=== PATIENT | male | born 1950 | race Caucasian/White ===

== ENCOUNTER 2019-06-20 14:01 | Emergency (ER) | payer OTHER, MEDICARE ==
[~2019-06-20] VITALS: Ht 185.4 cm; Wt 115.9 kg
[2019-06-20 14:09] VITALS: Ht 185.4 cm; Wt 115.9 kg
[2019-06-20] MEDS ORDERED: HYDROCHLOROTHIA25 MG PO (14:10)
[2019-06-20 14:56] LABS: APPEARANCE CLEAR (CLEAR); BILIRUBIN NEGATIVE (NEGATIVE); COLOR YELLOW (YELLOW); GLUCOSE NEGATIVE (NEGATIVE); KETONE NEGATIVE (NEGATIVE); NITRITE NEGATIVE (NEGATIVE); PROTEIN NEGATIVE (NEGATIVE); SPECIFIC GRAVITY 1.015 (1.005-1.020); UROBILINOGEN NORMAL (NORMAL)
[2019-06-20 14:57] LABS: BASOPHILS 0.6 % (0-2); EOSINOPHILS 4.7 % (0-7); HEMATOCRIT 42.5 % (42.0-54.0); HEMOGLOBIN 14.8 g/dL (13.5-17.5); IMMATURE GRANULOCYTES 0.2 % (0-5); LYMPHOCYTES 12.4 % (15-50); MCH 30.3 pg (26.0-34.0); MCHC 34.8 g/dL (31.0-37.0); MCV 87.1 fL (80.0-100.0); MONOCYTES 16.5 % (2-11); NEUTROPHILS 65.6 % (40-80); PLATELET COUNT 150 10x3/uL (130-400); RBC 4.88 10x6/uL (4.20-6.10); RDW 13.9 % (11.5-14.5); WBC 4.9 10x3/uL (4.8-10.8)
[2019-06-20 15:16] LABS: ALBUMIN 3.3 g/dL (3.4-5.0); ALKALINE PHOSPHATASE 69 U/L (46-116); ALT (SGPT) 39 U/L (10-68); BILIRUBIN - TOTAL 0.74 mg/dL (0.2-1.3); CALC OSMOLALITY 280 mosm/kg (275-300); CALCIUM 8.9 mg/dL (8.5-10.1); CHLORIDE - SERUM 102 mmol/L (98-107); CREATININE - SERUM 1.1 mg/dL (0.6-1.3); GLUCOSE 112 mg/dL (74-106); SODIUM 140 mmol/L (136-145); UREA NITROGEN 16 mg/dL (7-18); eGFR NON AFRICAN AMERICAN 71 mL/min (90-120)
[2019-06-20 15:19] LABS: TROPONIN-I < 0.017 ng/mL (0.000-0.060)
[2019-06-20 19:30] VITALS: BP 145/65
== END 2019-06-20 19:30 | disposition home or self-care (01) ==
LOC: D.ER 14:01
PROVIDERS: Family Medicine
DX: G47.8 Other sleep disorders (principal); K74.60 Unspecified cirrhosis of liver; E87.6 Hypokalemia; B19.20 Unspecified viral hepatitis C without hepatic coma

== ENCOUNTER 2020-12-23 05:19 | Inpatient (IN) | payer OTHER, MEDICARE ==
[~2020-12-23] VITALS: Ht 185.4 cm; Wt 90.9 kg
[~2020-12-23 05:19] MED LIST: HYDROCHLOROTHIA25 MG PO
[2020-12-23 05:44] LABS: BASOPHILS 0.2 % (0-2); EOSINOPHILS 0 % (0-7); HEMATOCRIT 39.5 % (42.0-54.0); HEMOGLOBIN 13.3 g/dL (13.5-17.5); IMMATURE GRANULOCYTES 0.5 % (0-5); LYMPHOCYTE ABS# 0.18 10x3/uL (1.32-3.57); LYMPHOCYTES 2.7 % (15-50); MCH 30.9 pg (26.0-34.0); MCHC 33.7 g/dL (31.0-37.0); MCV 91.6 fL (80.0-100.0); MEAN PLATELET VOLUME 9.5 fL (7.4-10.4); NEUTROPHIL ABS# 5.43 10x3/uL (1.78-5.38); NEUTROPHILS 82.6 % (40-80); PLATELET COUNT 124 10x3/uL (130-400); RBC 4.31 10x6/uL (4.20-6.10); RDW 19.4 % (11.5-14.5); WBC 6.6 10x3/uL (4.8-10.8)
[2020-12-23 05:51] LABS: APTT 34.8 SECONDS (22.8-39.4); INR 1.34 (0.85-1.17); PROTIME 15.4 SECONDS (11.6-15.0)
[2020-12-23 06:16] LABS: ANION GAP 11.5 mmol/L (8-16); CARBON DIOXIDE 30.7 mmol/L (21.0-32.0); CREATININE - SERUM 1.7 mg/dL (0.6-1.3); POTASSIUM - SERUM 3.2 mmol/L (3.5-5.1)
[2020-12-23 06:32] LABS: ALBUMIN 2.7 g/dL (3.4-5.0); BILIRUBIN - TOTAL 10.84 mg/dL (0.2-1.3); MAGNESIUM - SERUM 1.5 mg/dL (1.8-2.4); PROTEIN - SERUM 7.2 g/dL (6.4-8.2)
[2020-12-23 06:35] LABS: TROPONIN-I 1.783 ng/mL (0.000-0.060)
[2020-12-23 06:39] VITALS: BP 153/77
[2020-12-23 07:11] LABS: UDS - AMPHET NEGATIVE QUAL (NEGATIVE); UDS - BARB NEGATIVE QUAL (NEGATIVE); UDS - BENZO NEGATIVE QUAL (NEGATIVE); UDS - COCAINE NEGATIVE QUAL (NEGATIVE); UDS - OPIATE NEGATIVE QUAL (NEGATIVE); UDS - PCP NEGATIVE QUAL (NEGATIVE); UDS - THC NEGATIVE QUAL (NEGATIVE)
[2020-12-23 07:32] LABS: BILIRUBIN 3+ (NEGATIVE); KETONE NEGATIVE (NEGATIVE); NITRITE NEGATIVE (NEGATIVE); UROBILINOGEN 12 mg/dL (< 2)
[2020-12-23 07:43] LABS: WHITE CELLS - URINE RARE HPF (0-1)
[2020-12-23 07:44] LABS: AMORPHOUS SEDIMENT <1+ LPF (NONE SEEN); BACTERIA FEW HPF (NONE SEEN); SQUAMOUS EPITHELIAL OCC HPF (0-4)
[2020-12-23 10:00] VITALS: BP 130/91
--- NOTE | 2020-12-23 10:00 | NUR ---
ARRIVE TO ROOM VIA WHEELCHAIR FROM ER. ALERT AND ORIENTED X4. TRANSFER TO BED WITH MINIMAL ASSIST. MED REC DONE TO BEST OF PATIENT'S KNOWLEDGE PER PATIENT. CONTINUE ADMISSION PROCESS AND SAFETY PRECAUTIONS. REFUSE SCDs. EDUCATE ON RISK FOR DVT.
[2020-12-23] MEDS ORDERED: AMRIX30 MG PO (10:29)
[2020-12-23] MEDS ORDERED: SUDAFED 30 MG T30 MG PO (10:30)
[2020-12-23] MEDS ORDERED: OMEPRAZOLE40 MG PO (10:30)
[2020-12-23] MEDS ORDERED: VENTOLIN HFA [SP8 GM INH (10:31)
[2020-12-23] MEDS ORDERED: SYMBICORT 80-10.2 GM INH (10:32)
[2020-12-23 11:00] VITALS: BP 126/65
[2020-12-23 15:14] VITALS: BP 130/91
[2020-12-23 19:52] VITALS: BP 125/69
--- NOTE | 2020-12-23 19:54 | NUR ---
REPORT RECEIVED, WILL CONT POC. PT UP IN BED RECEIVING BREATHING TREATMENT FROM RT. NO S/S OF DISTRESS OBSERVED. RR EVEN AND UNLABORED ON RA. BED LOCKED AND LOWERED, CL IN REACH. ASSESSMENT COMPLETED AT THIS TIME. WILL CONT TO MONITOR.
[2020-12-23 20:00] VITALS: BP 125/69
--- NOTE | 2020-12-23 23:10 | NUR ---
REPORT RECEIVED, WILL CONT POC. PT A&O, UP IN BED WATCHING TV. NO S/S OF DISTRESS OBSERVED. RR EVEN AND UNLABORED ON RA. BED LOCKED AND LOWERED, CL IN REACH. ASSESSMENT COMPLETED AT THIS TIME. WILL CONT TO MONITOR.
[2020-12-24 00:06] VITALS: BP 104/62
[2020-12-24 04:02] VITALS: BP 117/68
[2020-12-24 06:10] LABS: BASOPHILS 0.2 % (0-2); EOSINOPHILS 1.7 % (0-7); HEMATOCRIT 36.6 % (42.0-54.0); HEMOGLOBIN 12.1 g/dL (13.5-17.5); IMMATURE GRANULOCYTES 0.6 % (0-5); LYMPHOCYTE ABS# 0.35 10x3/uL (1.32-3.57); LYMPHOCYTES 7.3 % (15-50); MCH 30.6 pg (26.0-34.0); MCHC 33.1 g/dL (31.0-37.0); MCV 92.7 fL (80.0-100.0); MEAN PLATELET VOLUME 9.4 fL (7.4-10.4); NEUTROPHIL ABS# 3.77 10x3/uL (1.78-5.38); NEUTROPHILS 78.2 % (40-80); PLATELET COUNT 103 10x3/uL (130-400); RBC 3.95 10x6/uL (4.20-6.10); RDW 20.3 % (11.5-14.5)
[2020-12-24 06:15] LABS: WBC 4.8 10x3/uL (4.8-10.8)
[2020-12-24 06:32] LABS: INR 1.45 (0.85-1.17); PROTIME 16.4 SECONDS (11.6-15.0)
[2020-12-24 06:37] LABS: ALBUMIN 2.4 g/dL (3.4-5.0); ANION GAP 12.1 mmol/L (8-16); BILIRUBIN - TOTAL 10.14 mg/dL (0.2-1.3); CALCIUM 8.6 mg/dL (8.5-10.1); CARBON DIOXIDE 28.1 mmol/L (21.0-32.0); CREATININE - SERUM 1.4 mg/dL (0.6-1.3); MAGNESIUM - SERUM 1.7 mg/dL (1.8-2.4); PHOSPHOROUS 2.3 mg/dL (2.5-4.9); POTASSIUM - SERUM 3.2 mmol/L (3.5-5.1); PROTEIN - SERUM 6.3 g/dL (6.4-8.2)
--- NOTE | 2020-12-24 07:20 | NUR ---
RECIEVE REPORT. ALERT AND ORIENTED X4. ASSIST UP TO RESTROOM WITH WALKER. GAIT UNSTEADY. SINUS TACH ON TELEMETRY. DENIES ANY OTHER NEEDS. CONTINUE PLAN OF CARE AND SAFETY PRECAUTIONS.
[2020-12-24 08:00] VITALS: BP 126/72
[2020-12-24 11:00] VITALS: BP 130/74
[2020-12-24 11:10] LABS: HEPATITIS C ANTIBODY >11.0 S/CO RAT (0.0-0.9)
[2020-12-24 11:49] VITALS: Ht 185.4 cm; Wt 90.9 kg
--- NOTE | 2020-12-24 13:58 | EC ---
PATIENT:IVONNE VILLAGOMEZ DATE OF SERVICE: 12/23/20 SEX: M MEDICAL RECORD: [id number] DATE OF : 54 LOCATION:D.M2 D.210 AGE OF PATIENT: 70 ADMISSION DATE: 12/23/20 REFERRING PHYSICIAN: INTERPRETING PHYSICIAN: SIMONE ORDAZ MD ECHOCARDIOGRAM REPORT ECHO CHARGES 4 ECHO COMPLETE Date: 12/23/20 CLINICAL DIAGNOSIS: ELEVATED TROP, CHF ECHOCARDIOGRAPHIC MEASUREMENTS (adult normal given) AC root (d.<3.7cm) 3.6 cm LV Septum d (<1.2 cm> 1.2 cm Valve Excursion 1.6 cm LV Septum (systole) 1.6 cm Left Atria (s.<4.0cm> 4.0 cm LVPW d(<1.2cm) 1.3 cm RV (d.<2.3cm) 3.7 cm LVPW (sytole) 1.4 cm LV diastole(<5.6CM) 5.5 cm MV E-F(>70mm/sec) cm LV systole 4.2 cm LVOT Diameter 2.0 cm MV exc.(>10mm) 1.2 cm Est.ejection fraction (50-75%) % DOPPLER: LVIT cm/sec A 89 cm/sec E 75 cm/sec LA cm/sec RVSP 24 mmHg LVOT 162 cm/sec AOP1/2T m/s Asc. Ao 217 cm/sec RVOT 95 cm/sec RA cm/sec PA 115 cm/sec AV Gradient Peak 18.9 mmHg AV Mean 11.0 mmHg AV Area 2.4 cm MV Gradient Peak 5.6 mmHg MV Mean 3.0 mmHg MV Area cm COMMENTS: Panel Edge Sealer: Moreno TODD Electric Range Preparer: 3 Dr. Goff TAPE# Pericardial Effusion N DATE OF SERVICE: Adequate 2D, color-flow imaging, spectral Doppler, and M-Mode. FINDINGS: Borderline to mild LVH. LV internal dimension is normal. Wall motion is normal. EF is greater than or equal to 55%. Aortic valve is tricuspid. No evidence of stenosis by Doppler interrogation. Left atrium is normal at 4.0 cm. Mitral valve shows no prolapse. Trace MR. Right size is grossly normal. Trace TR. ECHOCARDIOGRAM REPORT [id number] IVONNE VILLAGOMEZ TRANSINT:[id number] Voice Confirmation ID: [id number] DOCUMENT ID: [id number] SIMONE ORDAZ MD at 1358 CC: [id number] DICTATION DATE: 12/23/20 112 CATTLE AND WHEAT FARMER: 12/23/20 211 ADM IN [facility] [address] [id number]
--- NOTE | 2020-12-24 17:03 | NUR ---
ASSIST UP TO RESTROOM. WHEN ATTEMPT TO AMBULATE BACK TO BED WITH WALKER, FEET UNABLE TO MOVE PROPERLY. CALL PHYSICAL THERAPY TO ASSIST BACK TO BED. PT INSTRUCT TO USE BEDPAN FOR PATIENT AND STAFF SAFETY.
[2020-12-24 19:00] VITALS: BP 118/602
--- NOTE | 2020-12-24 21:38 | NUR ---
REPORT RECEIVED, WILL CONT POC. PT A&O, UP IN BED RESTING. NO S/S OF DISTRESS OBSERVED. RR LABORED ON 3L NC, WILL CONSULT WITH RT, O2 SAT 92. BED LOCKED AND LOWERED, CL IN REACH. ASSESSMENT COMPLETED AT THIS TIME. WILL CONT TO MONITOR.
[2020-12-24 22:37] VITALS: BP 118/60
[2020-12-25] VITALS: BP 123/71
[2020-12-25 04:00] VITALS: BP 140/89
[2020-12-25 06:23] LABS: EOSINOPHILS 2.5 % (0-7); HEMATOCRIT 38.5 % (42.0-54.0); HEMOGLOBIN 12.9 g/dL (13.5-17.5); IMMATURE GRANULOCYTES 0.8 % (0-5); LYMPHOCYTES 5.7 % (15-50); MCH 31.6 pg (26.0-34.0); MCHC 33.5 g/dL (31.0-37.0); MCV 94.4 fL (80.0-100.0); MEAN PLATELET VOLUME 9.6 fL (7.4-10.4); MONOCYTES 14.7 % (2-11); NEUTROPHIL ABS# 3.95 10x3/uL (1.78-5.38); NEUTROPHILS 75.3 % (40-80); PLATELET COUNT 101 10x3/uL (130-400); RBC 4.08 10x6/uL (4.20-6.10); RDW 21.2 % (11.5-14.5); WBC 5.2 10x3/uL (4.8-10.8)
--- NOTE | 2020-12-25 07:13 | NUR ---
RECEIVE BEDSIDE SHIFT REPORT. RESTING IN BED WITH EYES CLOSED. NO S/S OF DISTRESS PRESENT AT THIS TIME. CALL LIGHT IN REACH. BED ALARM ON. WILL CONTINUE POC AND SAFETY PRECAUTIONS.
[2020-12-25 07:19] LABS: ALBUMIN 2.5 g/dL (3.4-5.0); ANION GAP 10.9 mmol/L (8-16); BILIRUBIN - TOTAL 12.35 mg/dL (0.2-1.3); CALCIUM 8.4 mg/dL (8.5-10.1); CARBON DIOXIDE 30.6 mmol/L (21.0-32.0); CREATININE - SERUM 1.4 mg/dL (0.6-1.3); MAGNESIUM - SERUM 1.7 mg/dL (1.8-2.4); PHOSPHOROUS 2.8 mg/dL (2.5-4.9); POTASSIUM - SERUM 3.5 mmol/L (3.5-5.1)
[2020-12-25 08:27] VITALS: BP 140/80
[2020-12-25 10:54] LABS: INR 1.36 (0.85-1.17); PROTIME 15.5 SECONDS (11.6-15.0)
[2020-12-25 12:06] VITALS: BP 130/80
--- NOTE | 2020-12-25 14:53 | NUR ---
EMPTIED 250ML OF DARK URINE
[2020-12-25 17:08] VITALS: BP 111/65
[2020-12-25 20:00] VITALS: BP 107/74
[2020-12-26] VITALS (7 sets, daily range): BP systolic 98–184; BP diastolic 60–74
--- NOTE | 2020-12-26 04:15 | NUR ---
PT PULLED HIS IV OUT EARLIER IN THE NIGHT. AN IV WAS STARTED IN THE RIGHT HAND WIHT A 22 GUAGE NEEDLE IN THE LEFT FOREARM AN IV WAS STARTED WITH A 20 GUAGE NEEDLE. BOTH ARE SALINE LOCKED. PT HAS BEEN CLEANED UP MULTIPLE TIMES TONIGHT. HIS SPEECH IS GARBLED. AT THIS POINT I CAN BARELY UNDERSTAND HIM.
[2020-12-26 06:20] LABS: BASOPHILS 0.9 % (0-2); EOSINOPHILS 2.7 % (0-7); HEMATOCRIT 39.5 % (42.0-54.0); HEMOGLOBIN 12.8 g/dL (13.5-17.5); IMMATURE GRANULOCYTES 1.1 % (0-5); LYMPHOCYTE ABS# 0.33 10x3/uL (1.32-3.57); LYMPHOCYTES 7.3 % (15-50); MCH 31.6 pg (26.0-34.0); MCHC 32.4 g/dL (31.0-37.0); MONOCYTES 17.7 % (2-11); NEUTROPHIL ABS# 3.17 10x3/uL (1.78-5.38); NEUTROPHILS 70.3 % (40-80); RBC 4.05 10x6/uL (4.20-6.10); RDW 21.7 % (11.5-14.5); WBC 4.5 10x3/uL (4.8-10.8)
[2020-12-26 06:34] LABS: MCV 97.5 fL (80.0-100.0); PLATELET COUNT 123 10x3/uL (130-400)
[2020-12-26 06:35] LABS: ALBUMIN 2.5 g/dL (3.4-5.0); BILIRUBIN - TOTAL 14.69 mg/dL (0.2-1.3); CALCIUM 8.7 mg/dL (8.5-10.1); CARBON DIOXIDE 32.2 mmol/L (21.0-32.0); CREATININE - SERUM 1.6 mg/dL (0.6-1.3); MAGNESIUM - SERUM 1.6 mg/dL (1.8-2.4); POTASSIUM - SERUM 3.2 mmol/L (3.5-5.1); PROTEIN - SERUM 6.7 g/dL (6.4-8.2)
[2020-12-26 07:00] LABS: INR 1.33 (0.85-1.17); PROTIME 15.3 SECONDS (11.6-15.0)
--- NOTE | 2020-12-26 07:13 | NUR ---
RECEIVE SHIFT REPORT. RESTING IN BED WITH EYES CLOSED. NO S/S OF DISTRESS PRESENT AT THIS TIME. NO LABORED BREATHING. O2 AT 5LNC. WILL CONTINUE POC AND SAFETY PRECAUTIONS. BED ALARM ON.
--- NOTE | 2020-12-26 12:46 | NUR ---
Nutrition Follow-up: Discussed with nursing. Reports pt is lethargic and has some shaking when trying to eat; eating <=50% of meals. Diet: Cardiac Wt: 273# (12/25) Labs noted: K+ 3.2, BUN 35, Cre 1.6, GFR 46, Mg 1.6, Alb 2.5, elev LFTs Meds noted: Lasix, Protonix, Lactulose, electrolyte protocol -Encourage PO intake and honor food preferences within diet restrictions. -Offer nutrition supplements. -RD follow-up: 12/30
[2020-12-26 14:10] LABS: HCVGENO - HEP C QUANT HCV Not Detected IU/mL (())
--- NOTE | 2020-12-26 22:37 | NUR ---
REPORT RECEIVED, WILL CONT POC. PT UP IN BED, A&O. PTS RESPIRATIONS ARE SHALLOW AND LABORED ON 8L. PT C/O SOB. PT PLACED IN UP RIGHT POSITION TO EASE BREATHING EFFORT. BED LOCKED AND LOWERED, CL IN REACH. ASSESSMENT COMPLETED AT THIS TIME. WILL CONT TO MONITOR.
[2020-12-27 00:21] VITALS: BP 106/64
--- NOTE | 2020-12-27 00:36 | NUR ---
PTS BREATHING EFFORT HAS EASED. PT RESTING PEACEFULLY IN BED ON 8 L NC.
[2020-12-27 04:00] LABS: BASOPHILS 1.1 % (0-2); EOSINOPHILS 2.8 % (0-7); HEMATOCRIT 40.1 % (42.0-54.0); IMMATURE GRANULOCYTES 1.5 % (0-5); LYMPHOCYTE ABS# 0.28 10x3/uL (1.32-3.57); LYMPHOCYTES 6.1 % (15-50); MCH 31.6 pg (26.0-34.0); MCHC 32.4 g/dL (31.0-37.0); MCV 97.6 fL (80.0-100.0); MEAN PLATELET VOLUME 10.1 fL (7.4-10.4); MONOCYTES 17.8 % (2-11); NEUTROPHIL ABS# 3.26 10x3/uL (1.78-5.38); NEUTROPHILS 70.7 % (40-80); PLATELET COUNT 132 10x3/uL (130-400); RBC 4.11 10x6/uL (4.20-6.10); WBC 4.6 10x3/uL (4.8-10.8)
[2020-12-27 04:05] LABS: INR 1.35 (0.85-1.17); PROTIME 15.4 SECONDS (11.6-15.0)
[2020-12-27 04:12] LABS: ALBUMIN 2.3 g/dL (3.4-5.0); ANION GAP 11.9 mmol/L (8-16); BILIRUBIN - TOTAL 15.53 mg/dL (0.2-1.3); CALCIUM 8.5 mg/dL (8.5-10.1); CARBON DIOXIDE 31.5 mmol/L (21.0-32.0); CREATININE - SERUM 1.7 mg/dL (0.6-1.3); MAGNESIUM - SERUM 1.6 mg/dL (1.8-2.4); PHOSPHOROUS 2.4 mg/dL (2.5-4.9); POTASSIUM - SERUM 3.4 mmol/L (3.5-5.1); PROTEIN - SERUM 6.5 g/dL (6.4-8.2)
[2020-12-27 04:31] VITALS: BP 106/66
--- NOTE | 2020-12-27 07:00 | NUR ---
LYING IN BED, AWAKE/ALERT/CONFUSED, T/R SELF AD LAWANDA WITH ASSIST, FC DRAINING DARK YELLOW URINE TO CDB IN AMPLE AMT, CATH CARE PROVIDED WITH DAILY BATH AND PRN, INCONT OF BOWEL WITH USE OF INCONT PADS, PERICARE PROVIDED WITH DAILY BATH AND PRN, DENIES PAIN/OTHER DISCOMFORT AT THIS TIME, CALL LIGHT/PHONE/WATER WITHIN REACH, NO S/S OF ACUTE DISTRESS OBSERVED.
[2020-12-27 08:00] VITALS: BP 139/110; BP 140/95
--- NOTE | 2020-12-27 19:30 | NUR ---
RECEIVED REPORT, WILL ASSUME CARE OF PT, IV-LFA-R HAND-SL, DENIES ANY NEEDS AT THIS TIME, BED IS LOW, SRX2, CALL LIGHT IN REACH, WILL CONTINUE PLAN OF CARE
[2020-12-27 22:50] VITALS: BP 115/69
[2020-12-28 01:04] VITALS: BP 105/67
--- NOTE | 2020-12-28 03:37 | NUR ---
I have reviewed this patient and I concur with the Shift Assessment completed by the Licensed Practical Nurse today this shift.
[2020-12-28 04:08] LABS: EOSINOPHILS 2.2 % (0-7); IMMATURE GRANULOCYTES 2.8 % (0-5); LYMPHOCYTE ABS# 0.29 10x3/uL (1.32-3.57); LYMPHOCYTES 5.8 % (15-50); MCH 31.9 pg (26.0-34.0); MCHC 32.5 g/dL (31.0-37.0); MEAN PLATELET VOLUME 10.2 fL (7.4-10.4); MONOCYTES 19.1 % (2-11); NEUTROPHIL ABS# 3.43 10x3/uL (1.78-5.38); NEUTROPHILS 69.1 % (40-80); PLATELET COUNT 141 10x3/uL (130-400); RBC 4.08 10x6/uL (4.20-6.10); RDW 22.5 % (11.5-14.5)
[2020-12-28 04:29] LABS: INR 1.36 (0.85-1.17); PROTIME 15.5 SECONDS (11.6-15.0)
[2020-12-28 04:31] LABS: ALBUMIN 2.1 g/dL (3.4-5.0); ANION GAP 10.8 mmol/L (8-16); BILIRUBIN - TOTAL 16.09 mg/dL (0.2-1.3); CALCIUM 8.5 mg/dL (8.5-10.1); CARBON DIOXIDE 30.7 mmol/L (21.0-32.0); CREATININE - SERUM 1.5 mg/dL (0.6-1.3); MAGNESIUM - SERUM 1.7 mg/dL (1.8-2.4); PHOSPHOROUS 2.9 mg/dL (2.5-4.9); POTASSIUM - SERUM 3.5 mmol/L (3.5-5.1); PROTEIN - SERUM 6.2 g/dL (6.4-8.2)
[2020-12-28 05:47] VITALS: BP 110/68
[2020-12-28 08:29] VITALS: BP 98/53
--- NOTE | 2020-12-28 08:48 | NUR ---
PT VERY DROWSY THIS AM, BUT EASILY AROUSES TO VOICE. SPEECH IS GARBLE UNABLE TO UNDERSTAND PT WHEN HE SPEAKS. HELPED COATING INSPECTOR CLEAN PT UP FROM INCONT EPISODE, COMPLETE LINEN CHANGE, ALSO REPOSITIONED PT IN BED. PT IS ON 6LNC WITH EVEN AND UNLABORED RESP. RT HAND IV INFUSING NS AT KVO. LT FA IV SL. SR-87 WITH PAC ON TELE. PLACED SCDS ON BILAT. PT DENIES ANY NEEDS AT THIS TIME. CALL LIGHT IN REACH. WILL CONTINUE PLAN OF CARE.
[2020-12-28 11:42] VITALS: BP 108/66
--- NOTE | 2020-12-28 14:53 | NUR ---
CLEANED PT UP FROM INCONT EPISODE. PT DENIES ANY OTHER NEEDS AT THIS TIME. CALL LIGHT IN REACH.
--- NOTE | 2020-12-28 15:36 | NUR ---
REDNESS NOTED TO RT HAND IV, PT C/O TENDERNESS AND PAIN WHEN IV IS FLUSHED. D/C IV WITH CATHETER TIP INTACT. PT DENIES ANY OTHER NEEDS AT THIS TIME. CALL LIGHT IN REACH.
[2020-12-28 16:17] VITALS: BP 110/64
[2020-12-28 20:30] VITALS: BP 108/71
[2020-12-29 00:30] VITALS: BP 111/75
[2020-12-29 04:30] VITALS: BP 128/72
[2020-12-29 04:40] LABS: BASOPHILS 0.6 % (0-2); EOSINOPHILS 2.5 % (0-7); HEMOGLOBIN 13.5 g/dL (13.5-17.5); IMMATURE GRANULOCYTES 1.5 % (0-5); LYMPHOCYTES 6.3 % (15-50); MCH 31.5 pg (26.0-34.0); MCHC 31.4 g/dL (31.0-37.0); MEAN PLATELET VOLUME 10.3 fL (7.4-10.4); MONOCYTES 16.8 % (2-11); NEUTROPHIL ABS# 3.45 10x3/uL (1.78-5.38); NEUTROPHILS 72.3 % (40-80); PLATELET COUNT 155 10x3/uL (130-400); RBC 4.28 10x6/uL (4.20-6.10); RDW 22.8 % (11.5-14.5); WBC 4.8 10x3/uL (4.8-10.8)
[2020-12-29 04:47] LABS: MCV 100.5 fL (80.0-100.0)
[2020-12-29 05:01] LABS: ALBUMIN 2.2 g/dL (3.4-5.0); ANION GAP 13.5 mmol/L (8-16); BILIRUBIN - TOTAL 17.77 mg/dL (0.2-1.3); CALCIUM 8.6 mg/dL (8.5-10.1); CARBON DIOXIDE 28.2 mmol/L (21.0-32.0); CREATININE - SERUM 1.5 mg/dL (0.6-1.3); POTASSIUM - SERUM 3.7 mmol/L (3.5-5.1); PROTEIN - SERUM 6.5 g/dL (6.4-8.2)
--- NOTE | 2020-12-29 08:30 | NUR ---
AM MEDS GIVEN AT THIS TIME. ALSO HELPED PT EAT BREAKFAST, PT TOOK A FEW BITES AND DRINKED 240CC OF ORANGE JUICE, AND THEN HE STATED THAT HE WAS DONE. PT IS A/O X3, RESP EVEN AND NONLABORED ON 6L NC. LR FA INFUSING NS AT KVO, A LITTLE REDNESS NOTED TO SITE BUT FLUSHES FINE AND PT DOES NOT C/O PAIN WHEN IV IS BEING FLUSHED. SCDS ON BILAT. BED LOW, BEDSIDE RAILS X2, CALL LIGHT IN REACH.
[2020-12-29 08:35] VITALS: BP 101/64
[2020-12-29 12:10] VITALS: BP 114/72
--- NOTE | 2020-12-29 13:02 | NUR ---
NOTIFIED MYKE GARCIA APRN THAT PT IS REFUSING TO HAVE ABGS DONE.
[2020-12-29 16:16] VITALS: BP 126/66
[2020-12-29 22:30] VITALS: BP 116/74
[2020-12-30 04:00] VITALS: BP 111/72
[2020-12-30 05:02] LABS: BASOPHILS 1.1 % (0-2); EOSINOPHILS 3.2 % (0-7); HEMATOCRIT 40.5 % (42.0-54.0); HEMOGLOBIN 12.8 g/dL (13.5-17.5); IMMATURE GRANULOCYTES 1.8 % (0-5); LYMPHOCYTE ABS# 0.41 10x3/uL (1.32-3.57); LYMPHOCYTES 9.4 % (15-50); MCH 31.6 pg (26.0-34.0); MCHC 31.6 g/dL (31.0-37.0); MONOCYTES 20.1 % (2-11); NEUTROPHIL ABS# 2.81 10x3/uL (1.78-5.38); NEUTROPHILS 64.4 % (40-80); PLATELET COUNT 165 10x3/uL (130-400); RBC 4.05 10x6/uL (4.20-6.10); RDW 22.9 % (11.5-14.5); WBC 4.4 10x3/uL (4.8-10.8)
[2020-12-30 05:16] LABS: INR 1.34 (0.85-1.17); PROTIME 15.4 SECONDS (11.6-15.0)
[2020-12-30 05:27] LABS: ANION GAP 9.6 mmol/L (8-16); BILIRUBIN - TOTAL 15.79 mg/dL (0.2-1.3); CALCIUM 8.4 mg/dL (8.5-10.1); CARBON DIOXIDE 30.1 mmol/L (21.0-32.0); CREATININE - SERUM 1.5 mg/dL (0.6-1.3); POTASSIUM - SERUM 3.7 mmol/L (3.5-5.1); PROTEIN - SERUM 6.2 g/dL (6.4-8.2)
--- NOTE | 2020-12-30 08:18 | NUR ---
AM MEDS GIVEN PER EMAR. PT AWAKE AND ALERT, SPEECH IS MUMBLED. PT BEDDING CHANGED, INCONTINENT BOWEL MOVEMENT NOTED. PT DENIES ANY PAIN, O2 IN PLACE. CLWR.
[2020-12-30 08:58] VITALS: BP 150/81
--- NOTE | 2020-12-30 09:00 | NUR ---
PT LAYING IN BED WITH OXYGEN OFF. NASAL CANNULA REPLACED AND EDUCATION DONE WITH PT. PT IS ORIENTED TO PERSON, PLACE, AND TIME, DISORIENTED TO SITUATION. PT BOWEL MOVEMENT CLEANED. PT TURNED IN BED TO LEFT SIDE. PT GIVEN MEDICATIONS WITH APPLESAUCE AND THICKENED LIQUIDS. PT COUGHED AFTER THE THICKENED LIQIUDS. PT APPEARS RESTLESS. WILL CONTINUE TO MONITOR.
--- NOTE | 2020-12-30 12:51 | NUR ---
Nutrition Reassessment/Follow-up: Noted pt with some confusion & garbled speech. Nursing reports pt ate some this AM; 50% recorded on door. Poor PO intake reported over the weekend. ST mando on 12/27 = dysarthria & oropharyngeal dysphagia. Diet: Cardiac, Mech Soft w/ Ground Meat, [place] Thick Liquids PO intake: 0-25% (12/28-12/29) Wt: 200# (12/27)IBW: 184# Labs noted: BUN 46, Cre 1.5, GFR 49, Ca 8.4, Alb 2.0, elev LFTs, Ammonia 33 Meds noted: Lactulose, Florajen, Protonix, Lasix, electrolyte protocol Est needs: 2530-6809 kcal/day (25-30 kcal/kg IBW) 55-75 g protein/day (0.6-0.8 g/kg actual BW) -Encourage PO intake and honor food preferences within diet restrictions. -Offer nutrition supplements. -Need new wt. -RD will follow up within 3-4 days.
[2020-12-30 15:53] VITALS: BP 110/75
[2020-12-30 20:00] VITALS: BP 120/80
--- NOTE | 2020-12-30 22:00 | NUR ---
PT LAYING IN BED WITH OXYGEN OFF. EDUCATION DONE WITH PATIENT ON OXYGEN NEED/USE. PT VERBALIZED UNDERSTANDING. PT IS ORIENTED TO PERSON, PLACE, AND TIME. PT IS DISORIENTED TO SITUATION. PT BOWEL MOVEMENT CLEANED UP. PT VITALS WNL. MEDICATIONS GIVEN WITH APPLESAUCE AND THICKENED LIQUIDS. PT COUGHED AFTER THICKENED LIQUIDS. PT REFUSING A GOWN. IV INTACT.
--- NOTE | 2020-12-30 23:00 | NUR ---
PT CLEANED UP AFTER BOWEL MOVEMENT, INCLUDING SOCKS AND BEDSHEETS BEING REPLACED. PT REFUSES GOWN. OXYGEN REMOVED AGAIN. PT SCOOTING TO END OF BED. PT TURNED TO RIGHT SIDE. PT GIVEN PRN ATIVAN FOR AGITATION AND RESTLESSNESS. WILL CONTINUE TO MONITOR.
[2020-12-31 04:00] VITALS: BP 106/73
[2020-12-31 06:00] LABS: EOSINOPHILS 2.4 % (0-7); LYMPHOCYTE ABS# 0.23 10x3/uL (1.32-3.57); LYMPHOCYTES 5.6 % (15-50); MCHC 31.7 g/dL (31.0-37.0); MEAN PLATELET VOLUME 10.9 fL (7.4-10.4); MONOCYTES 18.8 % (2-11); NEUTROPHIL ABS# 2.88 10x3/uL (1.78-5.38); NEUTROPHILS 70.2 % (40-80); PLATELET COUNT 170 10x3/uL (130-400); RBC 4.06 10x6/uL (4.20-6.10); RDW 22.7 % (11.5-14.5); WBC 4.1 10x3/uL (4.8-10.8)
[2020-12-31 06:29] LABS: ALBUMIN 1.9 g/dL (3.4-5.0); ANION GAP 10.8 mmol/L (8-16); BILIRUBIN - TOTAL 15.15 mg/dL (0.2-1.3); CALCIUM 8.3 mg/dL (8.5-10.1); CREATININE - SERUM 1.7 mg/dL (0.6-1.3); POTASSIUM - SERUM 3.8 mmol/L (3.5-5.1); PROTEIN - SERUM 6.1 g/dL (6.4-8.2)
[2020-12-31 07:28] VITALS: BP 106/75
--- NOTE | 2020-12-31 08:00 | NUR ---
NURSE GIVES PATIENT PO MEDS WITH HIS APPLESAUCE, NURSE TRIES TO GET PATIENT HIS LACTULOSE , BUT HE CHOKES QUITE A BIT ON IT. HIS EYES GOT WATERY AND NURSE HAD TO RAISE HIM UP TO CATCH HIS BREATH. NURSE REPORTS TO CEASAR LADD AND HE LETS NURSE KNOW THAT HE HAD A SWALLOW STUDY YESTERDAY, BUT WOULD LOOK AT THIS CHART.
[2020-12-31 15:00] VITALS: BP 110/70
--- NOTE | 2020-12-31 16:26 | NUR ---
OT NOTE: PT IS MAX-TOTAL A WITH BED MOB TASKS. PT IS LETHARGIC AND REQUIRED EXTENDED TIME. PT REQUIRED MAX A FOR SIMPLE FACE AND HAND HYGIENE TASKS. [phone] THANK YOU,SONAL ANNE
--- NOTE | 2020-12-31 19:30 | NUR ---
PT IN BED, AAO X 1, PT RESP EVEN AND UNLABORED, NO DISTRESS NOTED, CL IN REACH, SR UP X 2.
[2020-12-31 21:00] VITALS: BP 105/55
[2020-12-31 23:56] VITALS: BP 104/65
[2021-01-01 04:00] VITALS: BP 100/56
--- NOTE | 2021-01-01 05:45 | NUR ---
I have reviewed this patient and I concur with the Shift Assessment completed by the Licensed Practical Nurse today this shift.
[2021-01-01 06:27] LABS: BASOPHILS 0.8 % (0-2); EOSINOPHILS 3.2 % (0-7); HEMATOCRIT 41.2 % (42.0-54.0); HEMOGLOBIN 12.9 g/dL (13.5-17.5); IMMATURE GRANULOCYTES 1.4 % (0-5); LYMPHOCYTE ABS# 0.35 10x3/uL (1.32-3.57); LYMPHOCYTES 7.1 % (15-50); MCH 32.1 pg (26.0-34.0); MCHC 31.3 g/dL (31.0-37.0); MCV 102.5 fL (80.0-100.0); MEAN PLATELET VOLUME 10.9 fL (7.4-10.4); MONOCYTES 16.3 % (2-11); NEUTROPHIL ABS# 3.53 10x3/uL (1.78-5.38); NEUTROPHILS 71.2 % (40-80); PLATELET COUNT 170 10x3/uL (130-400); RBC 4.02 10x6/uL (4.20-6.10); RDW 22.8 % (11.5-14.5)
[2021-01-01 07:24] LABS: ALBUMIN 1.8 g/dL (3.4-5.0); ANION GAP 11.6 mmol/L (8-16); BILIRUBIN - TOTAL 14.54 mg/dL (0.2-1.3); CALCIUM 8.5 mg/dL (8.5-10.1); CARBON DIOXIDE 28.3 mmol/L (21.0-32.0); CREATININE - SERUM 1.8 mg/dL (0.6-1.3); POTASSIUM - SERUM 3.9 mmol/L (3.5-5.1); PROTEIN - SERUM 6.1 g/dL (6.4-8.2)
[2021-01-01 08:01] VITALS: BP 103/54
[2021-01-01 11:54] VITALS: BP 116/71
[2021-01-01 15:24] VITALS: BP 120/76
--- NOTE | 2021-01-01 17:45 | NUR ---
OT NOTE: ATTEMPTED TMT X 2.. PT WAS VERY LETHARGIC IN BOTH THE AM AND PM..ABLE TO AROUSE BUT UNABLE TO STAY AWAKE. VERY MUMBLED SPEECH.. DIFFICULTY UNDERSTANDING WHAT PT WAS SAYING. WILL ATTEMPT AGAIN TOMORROW. LUKASZ BURNETT, OTR/L
[2021-01-01 18:57] VITALS: BP 114/74
--- NOTE | 2021-01-01 19:45 | NUR ---
RECIEVED UP IN BED WITH HOB ELEVATED. AROUSES TTO VERBAL STIMULI. O2 HF AT 15 LITERS. NO S/S OF DISTRESS OBSERVED.
[2021-01-01 23:41] VITALS: BP 96/63
[2021-01-02 04:33] VITALS: BP 97/58
[2021-01-02 05:13] LABS: BASOPHILS 1.1 % (0-2); EOSINOPHILS 2.4 % (0-7); HEMATOCRIT 42.1 % (42.0-54.0); HEMOGLOBIN 13.2 g/dL (13.5-17.5); IMMATURE GRANULOCYTES 1.5 % (0-5); LYMPHOCYTE ABS# 0.34 10x3/uL (1.32-3.57); LYMPHOCYTES 6.3 % (15-50); MCH 32.1 pg (26.0-34.0); MCHC 31.4 g/dL (31.0-37.0); MCV 102.4 fL (80.0-100.0); MEAN PLATELET VOLUME 11.5 fL (7.4-10.4); MONOCYTES 15.2 % (2-11); NEUTROPHIL ABS# 3.96 10x3/uL (1.78-5.38); NEUTROPHILS 73.5 % (40-80); PLATELET COUNT 182 10x3/uL (130-400); RBC 4.11 10x6/uL (4.20-6.10); RDW 22.7 % (11.5-14.5); WBC 5.4 10x3/uL (4.8-10.8)
[2021-01-02 05:37] LABS: ALBUMIN 1.8 g/dL (3.4-5.0); ANION GAP 14.2 mmol/L (8-16); BILIRUBIN - TOTAL 14.33 mg/dL (0.2-1.3); CALCIUM 8.7 mg/dL (8.5-10.1); POTASSIUM - SERUM 4.2 mmol/L (3.5-5.1)
[2021-01-02 05:38] LABS: CREATININE - SERUM 2.3 mg/dL (0.6-1.3)
[2021-01-02 08:25] VITALS: BP 101/61
--- NOTE | 2021-01-02 09:03 | NUR ---
PT WITH DECREASED OXYGEN THIS MORNING, RT CALLED AND PLACED ON NRB. POSITIONED FOR COMFORT. CEASAR BEJARANO WITH ROUNDS AND ORDERED STAT ORDERS. DR BROWN ORDERED ABG'S.
--- NOTE | 2021-01-02 10:32 | NUR ---
PT STILL ON NRB, CONT PULSE OX SHOWING 93%. LETHARGIC AND SLEEPING. AROUSE TO VOICE/TOUCH. GARBLED WORDS AT BEST. MEDS AND BREAKFAST HELD DUE TO LETHARGY AND SWALLOW RISK. POSITIONED IN BED.
--- NOTE | 2021-01-02 11:06 | NUR ---
Nutrition Follow-up: Nursing reports meds and breakfast held this AM d/t lethargy and swallow risk. ST following. Noted pt with poor prognosis. Discussed in IDT meeting. Diet: Cardiac, Pureed, [place] Thick Liquids, no straw No new wt; last wt: 200# (12/27) Labs noted: Na 151, BUN 73, Cre 2.3, GFR 30, Alb 1.8, Ammonia 30, elev LFTs Meds noted: Lactulose, Florajen, Protonix, Lasix, electrolyte protocol -If poor PO intake/issues with swallowing persist, pt may benefit from nutrition support (NGT/PEG?) if medically feasible and/or desired. -Need new wt; noted daily wts ordered. -RD follow-up: 01/06
[2021-01-02 12:23] VITALS: BP 97/61
--- NOTE | 2021-01-02 12:48 | NUR ---
OT NOTE: HOLD TMT TODAY DUE TO INCREASED 02 REQUIREMENTS AND CONTINUED LETHARGY... LUKASZ BURNETT, OTR/L
--- NOTE | 2021-01-02 14:11 | NUR ---
PT BLADDER SCAN SHOWS 182ML OF VOLUME. SUAREZ PLACED, DARK DOMINGO URINE DRAINED.
[2021-01-02 14:35] LABS: BILIRUBIN 3+ (NEGATIVE); KETONE NEGATIVE (NEGATIVE); NITRITE NEGATIVE (NEGATIVE); UROBILINOGEN NORMAL mg/dL (< 2)
[2021-01-02 14:36] LABS: AMORPHOUS SEDIMENT MANY LPF (NONE SEEN); BACTERIA MODERATE HPF (NONE SEEN); WHITE CELLS - URINE 2 HPF (0-1)
[2021-01-02 17:04] VITALS: BP 103/75
[2021-01-02 20:28] VITALS: BP 106/67
[2021-01-03 01:11] VITALS: BP 106/60
[2021-01-03 04:59] VITALS: BP 99/62
--- NOTE | 2021-01-03 05:24 | NUR ---
TOOK BIPAP OFF AND PUT ON 7L HF. O2-92-93%. PT ON CONTINOUS O2. PT A/O TO PERSON. WORDS GARBLED. PT LETHARGIC AND SKIN IS ORANGE. PT ASKED IF HE HAS PAIN. PT STATES A LITTLE BIT. ITS HARD TO DECIFER PT'S WORDS. ORAL CARE PROVIDED. WILL CONTINUE TO MONITOR.
[2021-01-03 05:33] LABS: BASOPHILS 1.2 % (0-2); EOSINOPHILS 2.4 % (0-7); HEMATOCRIT 40.1 % (42.0-54.0); HEMOGLOBIN 12.6 g/dL (13.5-17.5); IMMATURE GRANULOCYTES 1.9 % (0-5); LYMPHOCYTE ABS# 0.28 10x3/uL (1.32-3.57); LYMPHOCYTES 4.8 % (15-50); MCH 32.4 pg (26.0-34.0); MCHC 31.4 g/dL (31.0-37.0); MCV 103.1 fL (80.0-100.0); MEAN PLATELET VOLUME 11.4 fL (7.4-10.4); MONOCYTES 13.7 % (2-11); NEUTROPHIL ABS# 4.42 10x3/uL (1.78-5.38); PLATELET COUNT 160 10x3/uL (130-400); RBC 3.89 10x6/uL (4.20-6.10); RDW 23.1 % (11.5-14.5); WBC 5.8 10x3/uL (4.8-10.8)
[2021-01-03 05:34] LABS: INR 1.52 (0.85-1.17)
[2021-01-03 05:37] LABS: ANION GAP 12.3 mmol/L (8-16); BILIRUBIN - TOTAL 14.58 mg/dL (0.2-1.3); CALCIUM 8.8 mg/dL (8.5-10.1); CREATININE - SERUM 2.8 mg/dL (0.6-1.3); MAGNESIUM - SERUM 2.6 mg/dL (1.8-2.4); POTASSIUM - SERUM 4.3 mmol/L (3.5-5.1); PROTEIN - SERUM 6.2 g/dL (6.4-8.2)
[2021-01-03 05:46] LABS: ALBUMIN 2.5 g/dL (3.4-5.0)
--- NOTE | 2021-01-03 06:17 | NUR ---
I have reviewed this patient and I concur with the Shift Assessment completed by the Licensed Practical Nurse today this shift.
--- NOTE | 2021-01-03 08:00 | NUR ---
PT RECEIVED ASLEEP AND LETHARGIC. OFF OF BIPAP PLACED BACK ON NRB. POSITIONED FOR COMFORT. SUAREZ NOTED WITH DARK DOMINGO URINE.
[2021-01-03 08:29] VITALS: BP 103/60
--- NOTE | 2021-01-03 11:20 | NUR ---
PT TURNED AND CLEANED FROM BM. POSITIONED FOR COMFORT. HE IS MORE AWAKE AND ALERT TODAY AND HAD A VISITOR.
[2021-01-03 12:23] VITALS: BP 110/65
--- NOTE | 2021-01-03 13:46 | MORECARE ---
CASE MANAGEMENT DISCHARGE SUMMARY PATIENT: IVONNE RUTLEDGE UNIT: [id number] ADM DATE: 12/23/20 AGE: 70 : 52 SEX: M ROOM/BED: D.2106 AUTHOR: SHAZIA,DOC PHYSICIAN: REFERRING PHYSICIAN: ROSETTE MANN MD DATE OF SERVICE: 01/03/21 Case Management Discharge Planning Summary COMMENTS ENTERED DATE: 01/03/21 5:09 CT COMMENT TYPE: Discharge Planning REVIEWER: Miladys Castellanos Late Entry 01/02/21 CM attempted to call patient's contact Taiwo Jareth to see if he had any family contacts. CM didn't gat an answer CM left message. CM spoke with Ana at [facility] to see if they had any contact information for family, Ana stated that they had a contact listed of a brother Lalito Rutledge [phone] . CM called that number and spoke with a lady at a bank defiantly not a correct number. CM will continue to find family contact or POA . Patient is currently unable give any information. ENTERED DATE: 12/31/20 3:28 CT COMMENT TYPE: Discharge Planning REVIEWER: Miladys Castellanos CM received a call from Ana at [facility] regarding d/c planning / needs. Ana stated that patient is100% [place]. She also gave CM number for [facility] [phone] and fax [phone] for [facility] inpatient rehab referral. CM will continue to follow and assist as needed with discharge planning / needs. DCP REVIEW SUMMARY ANTICIPATED D/C DATE: EXPECTED LOS : CASE STATUS: DCP Initiated INITIAL REVIEW: 01/03/2021 INITIAL REVIEWER: Nathalie Uribe FINAL DISCHARGE DISPOSITION: : FINAL REVIEWER: FINAL REVIEW DATE: DCP Focus Questions & Answers QUESTION: ANSWER : PATIENT: IVONNE RUTLEDGE ENCOUNTER: [id number] MEDICAL RECORD#: [id number] ADMISSION DATE: 12/23/2020 DISCHARGE DATE: ATTENDING MD: MACKENZIE MANN : AGE: 70 MARITAL STATUS: S DC PLAN ID: [id number] FACILITY: [facility] PRINTED ON: 01/03/21 13:46 CT All edits/amendments must be made on the electronic document DICTATION DATE: 01/03/211345 NEUROPHYSIOLOGIST: SHAUNA 01/03/211345 RPT#: [id number] DC DATE: STATUS: ADM IN [facility] [address] [place] [address] END OF REPORT
--- NOTE | 2021-01-03 13:59 | MORECARE ---
CASE MANAGEMENT DISCHARGE SUMMARY PATIENT: IVONNE RUTLEDGE UNIT: [id number] ADM DATE: 12/23/20 AGE: 70 : 52 SEX: M ROOM/BED: D.2106 AUTHOR: SHAZIA,DOC PHYSICIAN: REFERRING PHYSICIAN: ROSETTE MANN MD DATE OF SERVICE: 01/03/21 Case Management Discharge Planning Summary COMMENTS ENTERED DATE: 01/03/21 13:45 CT COMMENT TYPE: Discharge Planning REVIEWER: Nathalie Uribe CM spoke with visitor in the room, Erwin Blank. Erwin states that he is going to call patient's brother in [place] after visit to discuss plan. Patient's brother, Avi, is the next of kin. Erwin states we can call him with any needs. I did discuss the hospice option and Erwin states "I don't think we are ready at this time." Avi Rutledge - [phone] [place] [address] Erwin Blank - friend - [phone] ENTERED DATE: 01/03/21 5:09 CT COMMENT TYPE: Discharge Planning REVIEWER: Miladys Castellanos Late Entry 01/02/21 CM attempted to call patient's contact Taiwo Jareth to see if he had any family contacts. CM didn't gat an answer CM left message. CM spoke with Ana at [facility] to see if they had any contact information for family, Ana stated that they had a contact listed of a brother Lalito Rutledge [phone] . CM called that number and spoke with a lady at a bank defiantly not a correct number. CM will continue to find family contact or POA . Patient is currently unable give any information. ENTERED DATE: 12/31/20 3:28 CT COMMENT TYPE: Discharge Planning REVIEWER: Miladys Castellanos CM received a call from Ana at [facility] regarding d/c planning / needs. Ana stated that patient is100% [place] benefits. She also gave CM number for Suzy Brizuela [phone] and fax [phone] inpatient rehab referral. CM will continue to follow and assist as needed with discharge planning / needs. DCP REVIEW SUMMARY ANTICIPATED D/C DATE: EXPECTED LOS : CASE STATUS: DCP Initiated INITIAL REVIEW: 01/03/2021 INITIAL REVIEWER: Nathalie Uribe FINAL DISCHARGE DISPOSITION: : FINAL REVIEWER: FINAL REVIEW DATE: DCP Focus Questions & Answers QUESTION: ANSWER : PATIENT: IVONNE RUTLEDGE ENCOUNTER: [id number] MEDICAL RECORD#: [id number] ADMISSION DATE: 12/23/2020 DISCHARGE DATE: ATTENDING MD: MACKENZIE MANN : AGE: 70 MARITAL STATUS: S DC PLAN ID: [id number] FACILITY: [facility] PRINTED ON: 01/03/21 13:58 CT All edits/amendments must be made on the electronic document DICTATION DATE: 01/03/21 135 COATING MACHINE FEEDER: SHAUNA 01/03/21 1358 RPT#: [id number] DC DATE: STATUS: ADM IN [facility] [address] [place] [address] END OF REPORT
[2021-01-03 16:45] VITALS: BP 129/70
[2021-01-03 21:14] VITALS: BP 107/71
[2021-01-04 01:47] VITALS: BP 105/65
--- NOTE | 2021-01-04 02:52 | NUR ---
I have reviewed this patient and I concur with the Shift Assessment completed by the Licensed Practical Nurse today this shift.
[2021-01-04 05:50] VITALS: BP 107/65
[2021-01-04 06:14] LABS: BASOPHILS 1.8 % (0-2); EOSINOPHILS 3.6 % (0-7); HEMOGLOBIN 11.8 g/dL (13.5-17.5); IMMATURE GRANULOCYTES 1.6 % (0-5); LYMPHOCYTE ABS# 0.34 10x3/uL (1.32-3.57); LYMPHOCYTES 6.8 % (15-50); MCH 32.2 pg (26.0-34.0); MCHC 31.1 g/dL (31.0-37.0); MCV 103.5 fL (80.0-100.0); MEAN PLATELET VOLUME 11.5 fL (7.4-10.4); MONOCYTES 11.8 % (2-11); NEUTROPHIL ABS# 3.71 10x3/uL (1.78-5.38); NEUTROPHILS 74.4 % (40-80); PLATELET COUNT 153 10x3/uL (130-400); RBC 3.67 10x6/uL (4.20-6.10); RDW 22.7 % (11.5-14.5)
[2021-01-04 06:29] LABS: ALBUMIN 2.9 g/dL (3.4-5.0); ANION GAP 14.4 mmol/L (8-16); BILIRUBIN - TOTAL 13.78 mg/dL (0.2-1.3); CALCIUM 8.8 mg/dL (8.5-10.1); CARBON DIOXIDE 26.8 mmol/L (21.0-32.0); CREATININE - SERUM 2.5 mg/dL (0.6-1.3); MAGNESIUM - SERUM 2.8 mg/dL (1.8-2.4); POTASSIUM - SERUM 4.2 mmol/L (3.5-5.1); PROTEIN - SERUM 6.3 g/dL (6.4-8.2)
--- NOTE | 2021-01-04 06:35 | NUR ---
I have reviewed this patient and I concur with the Shift Assessment completed by the Licensed Practical Nurse today this shift.
[2021-01-04 08:00] VITALS: BP 108/70
--- NOTE | 2021-01-04 09:00 | NUR ---
INTERMITTANT CONFUSION NOTED WITH PATIENT ROMOVING NRB AT TIMES WITH PATINET DESATTING TO 83% BUT REBOUNDS TO 955 WHEN REAPPLIED. CONTIIOUS PULSE OX MONITORED AND REPACED WHEN REMOVED PER PATINET. SKIN JAUNDICED WITH SUAREZ CATH PATENT. IVF INFUSING AT PRESCRIBED RATE WITH PATIENT BEING MONITORED.
[2021-01-04 11:00] VITALS: BP 113/76
[2021-01-04 15:00] VITALS: BP 106/73
--- NOTE | 2021-01-04 19:39 | NUR ---
INITIAL ROUNDS COMPLETED. PT RESTING WITH EYES CLOSED. RESP EVEN AND REGULAR. SR UP X2, CALL LIGHT WITHIN REACH.
[2021-01-04 20:30] VITALS: BP 100/64
--- NOTE | 2021-01-04 21:50 | NUR ---
ASSESSMENT COMPLETED AT 2020 HRS. VSS. O2 10LHF O2. PT VERY LETHARGIC, OPENS EYES TO LOUD VERBAL STIMULI, ANSWERED YES WHEN ASKED IF HE WAS COLD AND PROMPTLY WENT BACK TO SLEEP. LUNGS DIMINISHED IN BASES BILAT. ABD DISTENDED WITH BS NOTED. SWENSON. PALPABLE PERIPHERAL PULSES. SUAREZ DRAINING DARK URINE. IV TO LAC WITH D5W AT 75CC/HR. IV PATENT. SCD'S REMOVED AND SKIN INSPECTED. NO BREAKDOWN NOTED. UNABLE TO GIVE PM MEDS DUE TO PT'S LETHARGY. PT PLACED ON BIPAP AT THIS TIME WITH O2 SAT 95%. SR UP X2, CALL LIGHT WITHIN REACH AND BABY MONITOR IN USE.
--- NOTE | 2021-01-04 23:54 | NUR ---
PT PICKING AT THE BLANKETS. NO DISTRESS NOTED. O2 SAT 90% ON BIPAP. SR UP X2, CALL LIGHT WITHIN REACH AND BABY MONITOR ON.
[2021-01-05 00:30] VITALS: BP 104/70
--- NOTE | 2021-01-05 02:09 | NUR ---
PT RESTING WITH EYES CLOSED. RESP EVEN AND REGULAR. SRUP X3, CALL LIGT WITHIN REACH. O2 SAT 92% ON BIPAP.
[2021-01-05 04:30] VITALS: BP 108/70
--- NOTE | 2021-01-05 04:36 | NUR ---
PT MORE ALERT THIS AM. ABLE TO ANSWER YES/NO QUESTIONS APPROPRIATELY. I'S AND O'S COMPLETED. SR UP X3, CALL LIGHT WITHIN REACH.
[2021-01-05 04:43] LABS: BASOPHILS 1.5 % (0-2); EOSINOPHILS 3.3 % (0-7); HEMATOCRIT 41.2 % (42.0-54.0); HEMOGLOBIN 12.8 g/dL (13.5-17.5); IMMATURE GRANULOCYTES 1.5 % (0-5); LYMPHOCYTE ABS# 0.33 10x3/uL (1.32-3.57); LYMPHOCYTES 6.1 % (15-50); MCHC 31.1 g/dL (31.0-37.0); MEAN PLATELET VOLUME 11.2 fL (7.4-10.4); MONOCYTES 13.3 % (2-11); NEUTROPHIL ABS# 4.03 10x3/uL (1.78-5.38); NEUTROPHILS 74.3 % (40-80); PLATELET COUNT 139 10x3/uL (130-400); RDW 22.7 % (11.5-14.5); WBC 5.4 10x3/uL (4.8-10.8)
[2021-01-05 05:04] LABS: ALBUMIN 2.6 g/dL (3.4-5.0); ANION GAP 13.2 mmol/L (8-16); BILIRUBIN - TOTAL 13.46 mg/dL (0.2-1.3); CARBON DIOXIDE 25.8 mmol/L (21.0-32.0); CREATININE - SERUM 2.6 mg/dL (0.6-1.3)
--- NOTE | 2021-01-05 06:30 | NUR ---
PT RESTED WELL DURING SHIFT. ORAL CARE DONE X2. PT TOLERATED WELL. NEEDS MET; WILL CONTINUE TO MONITOR.
[2021-01-05 08:42] VITALS: BP 99/61
--- NOTE | 2021-01-05 10:25 | NUR ---
PT AWAKE AND CONFUSED, LYING IN BED WATCHING T/V. PT VERBALIZES BEING UPSET THAT HE CAN NOT FIND HIS DOG. INFORMED PT THAT HE WAS IN THE HOSPITAL AND HIS DOG WAS NOT HERE. PT STILL NPO PER MD. BUT IS COMPLAINING THAT HE IS HUNGRY AND THIRSTY. PT IS CLEAN AND DRY AT THIS TIME. REARANGED IN BED. CL IN REACH,S RX2. BED ALARM ON AND ACTIVE.
[2021-01-05 11:43] VITALS: BP 102/60
--- NOTE | 2021-01-05 15:32 | NUR ---
I have reviewed this patient and I concur with the Shift Assessment completed by the Licensed Practical Nurse today this shift.
[2021-01-05 16:33] VITALS: BP 98/54
--- NOTE | 2021-01-05 18:14 | NUR ---
PT ALERT AND CONFUSED. CLEAN AND DRY AT THIS TIME. RESTING COMFORTABLY. CL IN REACH, SRX2.
[2021-01-05 22:06] VITALS: BP 89/53
[2021-01-06 07:36] LABS: BASOPHILS 2.1 % (0-2); EOSINOPHILS 3.7 % (0-7); HEMATOCRIT 39.1 % (42.0-54.0); IMMATURE GRANULOCYTES 2.3 % (0-5); LYMPHOCYTE ABS# 0.27 10x3/uL (1.32-3.57); LYMPHOCYTES 5.6 % (15-50); MCH 32.3 pg (26.0-34.0); MCHC 30.7 g/dL (31.0-37.0); MEAN PLATELET VOLUME 11.5 fL (7.4-10.4); MONOCYTES 13.7 % (2-11); NEUTROPHILS 72.6 % (40-80); PLATELET COUNT 128 10x3/uL (130-400); RBC 3.71 10x6/uL (4.20-6.10); RDW 22.6 % (11.5-14.5); WBC 4.8 10x3/uL (4.8-10.8)
[2021-01-06 07:51] LABS: ALBUMIN 2.9 g/dL (3.4-5.0); ANION GAP 15.4 mmol/L (8-16); BILIRUBIN - TOTAL 13.37 mg/dL (0.2-1.3); CALCIUM 8.9 mg/dL (8.5-10.1); CARBON DIOXIDE 25.9 mmol/L (21.0-32.0); CREATININE - SERUM 2.4 mg/dL (0.6-1.3); POTASSIUM - SERUM 4.3 mmol/L (3.5-5.1); PROTEIN - SERUM 6.1 g/dL (6.4-8.2)
[2021-01-06 07:56] LABS: MCV 105.4 fL (80.0-100.0)
--- NOTE | 2021-01-06 08:10 | NUR ---
NURSE CALLS TO REPORT LOW CHLORIDE TO MYKE AT THIS TIME
[2021-01-06 08:44] VITALS: BP 102/57
--- NOTE | 2021-01-06 09:57 | NUR ---
NURSE TALKS WITH COMMUNITY ENGAGEMENT LEADER ABOUT PATIENT GETTING A NG TUBE AND NEPRO NUTRITION. SHE REPORTS TAHT PATIENT HAS A VARICIES AND THAT IT WAS AN ISSUE LAST WEEK , WHEN HE WAS ORIGINALLY PLACED . NURSE REPORTS TO YAIR. YAIR TELLS NURSE TO TALK WITH PRIMARY TO SEE THE PLAN SINCE PATIENT IS NOT GETTING NUTRITION.
--- NOTE | 2021-01-06 10:47 | NUR ---
PATIENT'S FRIEND (DECISION MAKER) WILL BE HERE AROUND NOON TODAY TO SEE PATIENT AND TALK WITH DRS ABOUT PATIENT.
--- NOTE | 2021-01-06 10:48 | NUR ---
DR MAZARIEGOS WAS ABLE TO TALK WITH PATIENT'S FRIEND TO GIVE UPDATE
[2021-01-06 13:36] VITALS: BP 106/38
--- NOTE | 2021-01-06 14:22 | NUR ---
Nutrition Reassessment/Follow-up: NPO x 4 days. Noted renal wants NGT placed and Nepro started. Although, noted pt with varices. ST following. No new wt; last wt: 200# (12/27) Labs noted: Na 154, K+ 4.3, BUN 100, Cre 2.4, GFR 29, Glu 130, Mg 3.0, Alb 2.9, PO4 2.9 (12/28) Meds noted: Albumin, Lactulose, Florajen, Protonix, D5W @ 125, electrolyte protocol -Nutrition needs unchanged; no new wt available. -If feeding tube is able to be placed, rec Suplena @ goal rate of 50 mL/hr; provides 2154 kcal (86-103% est needs) & 54 g protein (72-98% est needs) daily. -Need new wt. - follow-up: 01/08
--- NOTE | 2021-01-06 16:39 | NUR ---
PATIENT'S FRIEND IN ROOM , NURSE CALLS CHRISTIAN COUNSELOR TO TALK WITH HER.
--- NOTE | 2021-01-06 17:27 | NUR ---
NURSE FEEDS PATIENT PUREEDED DIET, AND THICKENED LIQUID. PATIENT TOLERATES VERY WELL. PATIENT'S FRIEND IN ROOM STILL WITH PATIENT. NURSE TAKES NPO OFF DOOR.
[2021-01-06 19:32] VITALS: BP 97/63
--- NOTE | 2021-01-06 21:42 | NUR ---
PT IS VERBALLY REFUSING HIS PO MEDS. I ASKED HIM IF HER WOULD TAKE THIS PO MED IN PUDDING. HE SAID NO..
[2021-01-07] VITALS (7 sets, daily range): BP systolic 97–111; BP diastolic 48–60
--- NOTE | 2021-01-07 04:41 | NUR ---
PT HAS BEEN RESTING ALL NIGHT. NO NEW C/O TO REPORT
[2021-01-07 06:19] LABS: BASOPHILS 1.2 % (0-2); EOSINOPHILS 1.5 % (0-7); HEMATOCRIT 40.8 % (42.0-54.0); HEMOGLOBIN 12.8 g/dL (13.5-17.5); LYMPHOCYTE ABS# 0.24 10x3/uL (1.32-3.57); LYMPHOCYTES 3.6 % (15-50); MCH 32.4 pg (26.0-34.0); MCHC 31.4 g/dL (31.0-37.0); MONOCYTES 11.3 % (2-11); NEUTROPHIL ABS# 5.36 10x3/uL (1.78-5.38); NEUTROPHILS 79.4 % (40-80); PLATELET COUNT 138 10x3/uL (130-400); RBC 3.95 10x6/uL (4.20-6.10); RDW 22.3 % (11.5-14.5)
[2021-01-07 06:26] LABS: INR 1.58 (0.85-1.17); PROTIME 17.5 SECONDS (11.6-15.0)
[2021-01-07 06:27] LABS: MCV 103.3 fL (80.0-100.0); WBC 6.7 10x3/uL (4.8-10.8)
[2021-01-07 06:28] LABS: ANION GAP 13.7 mmol/L (8-16); BILIRUBIN - TOTAL 13.98 mg/dL (0.2-1.3); CARBON DIOXIDE 25.6 mmol/L (21.0-32.0); CREATININE - SERUM 2.8 mg/dL (0.6-1.3); POTASSIUM - SERUM 4.3 mmol/L (3.5-5.1); PROTEIN - SERUM 6.3 g/dL (6.4-8.2)
--- NOTE | 2021-01-07 08:15 | NUR ---
NURSE IN ROOM TO FEED PT BREAKFAST AND GIVE AM MEDS. PATIENT IS AWAKE IN SPURTS. PATIENT NOT ABLE TO EAT MUCH DUE TO HIM BEING SO LETHARGIC, BUT NURSE TRIES WAKING HIM UP TO FEED HIM
--- NOTE | 2021-01-07 12:00 | NUR ---
PATIENT IS NOT AWAKE ENOUGH TO FEED PATIENT LUNCH.
--- NOTE | 2021-01-07 13:00 | NUR ---
RESPIRATORY PLACES PATIENT BACK ON BIPAP MACHINE DUE TO HIM NOT KEEPING SATS UP AND BEING LETHARGIC.
--- NOTE | 2021-01-07 22:22 | NUR ---
Pt resting in bed and on the BiPap @ 40%. The Pt will open yes to verbal command, but does not talk. He will make some sounds, but no words. The Pt was repositioned for comfort. Assessment per flow sheet, call light in reach, bed in low position.
[2021-01-08] VITALS (7 sets, daily range): BP systolic 47–91; BP diastolic 26–56
[2021-01-08 06:07] LABS: INR 1.72 (0.85-1.17); PROTIME 18.7 SECONDS (11.6-15.0)
[2021-01-08 06:10] LABS: ALBUMIN 2.9 g/dL (3.4-5.0); ANION GAP 18.6 mmol/L (8-16); BILIRUBIN - TOTAL 16.82 mg/dL (0.2-1.3); CALCIUM 8.7 mg/dL (8.5-10.1); CARBON DIOXIDE 21.8 mmol/L (21.0-32.0)
[2021-01-08 06:11] LABS: CREATININE - SERUM 4.6 mg/dL (0.6-1.3); POTASSIUM - SERUM 5.4 mmol/L (3.5-5.1)
[2021-01-08 06:22] LABS: BASOPHILS 0.3 % (0-2); EOSINOPHILS 0.8 % (0-7); HEMATOCRIT 39.8 % (42.0-54.0); HEMOGLOBIN 12.7 g/dL (13.5-17.5); IMMATURE GRANULOCYTES 1.3 % (0-5); LYMPHOCYTE ABS# 0.39 10x3/uL (1.32-3.57); LYMPHOCYTES 3.4 % (15-50); MCH 32.6 pg (26.0-34.0); MCHC 31.9 g/dL (31.0-37.0); MCV 102.3 fL (80.0-100.0); MEAN PLATELET VOLUME 12.5 fL (7.4-10.4); MONOCYTES 8.6 % (2-11); NEUTROPHIL ABS# 9.78 10x3/uL (1.78-5.38); NEUTROPHILS 85.6 % (40-80); PLATELET COUNT 142 10x3/uL (130-400); RBC 3.89 10x6/uL (4.20-6.10); RDW 22.6 % (11.5-14.5)
[2021-01-08 06:23] LABS: WBC 11.4 10x3/uL (4.8-10.8)
--- NOTE | 2021-01-08 09:45 | NUR ---
NURSE STARTS NEW IV TO RIGHT HAND, BEGINS AN ANTIBITOIC AT THIS TIME. PATIENT DOES NOT RESPOND TO NURSE WHEN SHE TALKS TO HIM. PATIENT'S BP IS 79/41, NURSE REPORT TO DR CLAYTON. DR CLAYTON ORDERS 250 ML BOLUS OF NS. THEN TO CALL HIM BACK AND LET HIM KNOW.
--- NOTE | 2021-01-08 10:10 | NUR ---
PATIENT 'S BP IS NOW 80/46, NURSE REPORTS TO MY[facility], SHE ORDERS ANOTHER BOLUS 250 BOLUS AND TO LET HER KNOW AFTER
--- NOTE | 2021-01-08 10:30 | NUR ---
AFTER BOLUS ANOTHER 250 BOLUS, PATIENT 'S BP IS NOW 76/42. NO IMPROVMENTS. NURSE REPORTS TO MY[facility]
--- NOTE | 2021-01-08 10:41 | NUR ---
MD HAS MADE PATIENT A DNR. NURSE ABOUT TO START A DOBUTAMINE DRIP ON PATIENT TO HELP WITH BP.
--- NOTE | 2021-01-08 10:57 | NUR ---
NURSE STARTS DOBUTAMINE DRIP FOR PATIENT.
--- NOTE | 2021-01-08 11:31 | NUR ---
nurse in room with patient's friend. patient is resting. bp is low, while on the dobutamine drip.
--- NOTE | 2021-01-08 12:19 | NUR ---
Nutrition Follow-up: Nursing reports pt did not eat this AM /2 bipap and did not eat much yesterday /2 lethargy. Noted hospice consulted. Diet: Renal, Puree, Honey Thick Liquids No new wt; last wt: 200# (12/27) Labs noted: K+ 5.4, BUN 114, Cre 4.6, GFR 13, Glu 107, Ammonia 33, Alb 2.9 Meds noted: Florajen, Lactulose, Protonix, D5W @ 150, electrolyte protocol -RD available to assist as needed. -RD follow-up: 01/10
--- NOTE | 2021-01-08 12:24 | NUR ---
PATIENT'S FRIEND STILL IN ROOM. PATIENT'S BP CONTINUES TO TREND DOWN.
--- NOTE | 2021-01-08 12:57 | NUR ---
NURSE TALKS WITH PATIENT'S BROTHER ANISHA VILLAGOMEZ - HE IS IN AGREEMENT OF PATIENT'S DNR. NURSE WAS ABLE TO GIVE PATIENT UPDATE FAR BLOOD PRESSURE, BREATHING STATUS . BROTHER STATES THAT HE WOULDN'T DO ANYTHING DIFFERENTLY. HE DOESNT' FEEL HIS BROTHER WOULD CHOOSE ANYTHING OTHER THAN DNR. NURSE THANKS PATIENT'S BROTHER FOR TAKING THE TIME TO TALK WITH HER.
--- NOTE | 2021-01-08 14:01 | NUR ---
NURSE TALKS WITH PATIENT' BROTHER. BROTHER STATES HE IS OKAY WITH PATIENT BEING PUT ON HOSPICE. AND PATIENT DOES NOT HAVE ANY CHILDREN. NURSE RELAYS MESSAGE TO CASE MGT.
[2021-01-08] MEDS ORDERED: ALBUTEROL2.5 MG/3 M INH (15:10)
[2021-01-08] MEDS ORDERED: MIDODRINE HCL5 MG PO (15:11)
[2021-01-08] MEDS ORDERED: XIFAXAN550 MG PO (15:11)
[2021-01-08] MEDS ORDERED: FLAGYL500 MG PO (15:11)
[2021-01-08] MEDS ORDERED: NICODERM CQ1 EAC2 TRANSDERM (15:11)
[2021-01-08] MEDS ORDERED: PERFOROMIS20 MCG/21 INH (15:11)
[2021-01-08] MEDS ORDERED: CHRONULAC30 ML PO (15:12)
--- NOTE | 2021-01-08 16:59 | NUR ---
WAITING TO HEAR BACK FOR BED NUMBER TO HOSPICE AT THE [facility]
--- NOTE | 2021-01-08 17:29 | NUR ---
UNNA BOOT PLACED ON PATIENT'S RIGHT LEG.
--- NOTE | 2021-01-08 18:39 | NUR ---
PATIENT CHANGED. HE HAD A BM.
--- NOTE | 2021-01-08 23:17 | NUR ---
PT PRONOUNCED AT [address] BLOOD, NEXT OF KIN PRONOUNCED, KRYSTLE NOTIFED AT THIS TIME.
--- NOTE | 2021-01-09 00:26 | NUR ---
PT BROTHER NOTIFED ABOUT PT PASSING AWAY, PT BROTHER DOESN'T WANT ANY PART OF MAKING DESISIONS, CORONOR CALLED TO [employer].
--- NOTE | 2021-01-09 02:04 | MORECARE ---
CASE MANAGEMENT DISCHARGE SUMMARY PATIENT: IVONNE RUTLEDGE UNIT: [id number] ADM DATE: 12/23/20 AGE: 70 : 52 SEX: M ROOM/BED: D.2106 AUTHOR: SHAZIA,DOC PHYSICIAN: REFERRING PHYSICIAN: ROSETTE MANN MD DATE OF SERVICE: 01/09/21 Case Management Discharge Planning Summary COMMENTS ENTERED DATE: 01/03/21 13:45 CT COMMENT TYPE: Discharge Planning REVIEWER: Nathalie Uribe CM spoke with visitor in the room, Erwin Blank. Erwin states that he is going to call patient's brother in [place] after visit to discuss plan. Patient's brother, Avi, is the next of kin. Erwin states we can call him with any needs. I did discuss the hospice option and Erwin states "I don't think we are ready at this time." Avi Rutledge - [phone] [place] [address] Erwin Blank - friend - [phone] ENTERED DATE: 01/03/21 5:09 CT COMMENT TYPE: Discharge Planning REVIEWER: Miladys Castellanos Late Entry 01/02/21 CM attempted to call patient's contact Taiwo Jareth to see if he had any family contacts. CM didn't gat an answer CM left message. CM spoke with Ana at [place] to see if they had any contact information for family, Ana stated that they had a contact listed of a brother Lalito Rutledge [phone] . CM called that number and spoke with a lady at a bank defiantly not a correct number. CM will continue to find family contact or POA . Patient is currently unable give any information. ENTERED DATE: 12/31/20 3:28 CT COMMENT TYPE: Discharge Planning REVIEWER: Miladys Castellanos CM received a call from Ana at [place] regarding d/c planning / needs. Ana stated that patient is100% [place]. She also gave CM number for Suzy Brizuela [phone] and fax [phone] for [place] inpatient rehab referral. CM will continue to follow and assist as needed with discharge planning / needs. DCP REVIEW SUMMARY ANTICIPATED D/C DATE: EXPECTED LOS : CASE STATUS: DCP Initiated INITIAL REVIEW: 01/03/2021 INITIAL REVIEWER: Nathalie Uribe FINAL DISCHARGE DISPOSITION: 20 : FINAL REVIEWER: Miladys Castellanos FINAL REVIEW DATE: 01/09/2021 DCP Focus Questions & Answers QUESTION: ANSWER : PATIENT: IVONNE RUTLEDGE ENCOUNTER: [id number] MEDICAL RECORD#: [id number] ADMISSION DATE: 12/23/2020 DISCHARGE DATE: 01/08/2021 ATTENDING MD: MACKENZIE MANN : AGE: 70 MARITAL STATUS: S DC PLAN ID: [id number] FACILITY: [facility] PRINTED ON: 01/09/21 2:04 CT All edits/amendments must be made on the electronic document DICTATION DATE: 01/09/21203 MEDICAL DATA ANALYST: DM 01/09/21203 RPT#: [id number] DC DATE:01/08/21 STATUS: DIS IN [facility] [address] [place] [address] END OF REPORT
--- NOTE | 2021-01-09 09:58 | MORECARE ---
CASE MANAGEMENT DISCHARGE SUMMARY PATIENT: IVONNE RUTLEDGE UNIT: [id number] ADM DATE: 12/23/20 AGE: 70 : 54 SEX: M ROOM/BED: D.2106 AUTHOR: SHAZIA,DOC PHYSICIAN: REFERRING PHYSICIAN: ROSETTE MANN MD DATE OF SERVICE: 01/09/21 Case Management Discharge Planning Summary COMMENTS ENTERED DATE: 01/03/21 13:45 CT COMMENT TYPE: Discharge Planning REVIEWER: Nathalie Uribe CM spoke with visitor in the room, Erwin Blank. Erwin states that he is going to call patient's brother in [place] after visit to discuss plan. Patient's brother, Avi, is the next of kin. Erwin states we can call him with any needs. I did discuss the hospice option and Erwin states "I don't think we are ready at this time." Avi Rutledge - [phone] [place] [address] Erwin Blank - friend - [phone] ENTERED DATE: 01/03/21 5:09 CT COMMENT TYPE: Discharge Planning REVIEWER: Miladys Castellanos Late Entry 01/02/21 CM attempted to call patient's contact Taiwo Jareth to see if he had any family contacts. CM didn't gat an answer CM left message. CM spoke with Ana at [place] to see if they had any contact information for family, Ana stated that they had a contact listed of a brother Lalito Rutledge [phone] . CM called that number and spoke with a lady at a bank defiantly not a correct number. CM will continue to find family contact or POA . Patient is currently unable give any information. ENTERED DATE: 12/31/20 3:28 CT COMMENT TYPE: Discharge Planning REVIEWER: Miladys Castellanos CM received a call from Ana at [place] regarding d/c planning / needs. Ana stated that patient is100% [place] benefits. She also gave CM number for Suzy Brizuela [phone] and fax [phone] for [place] inpatient rehab referral. CM will continue to follow and assist as needed with discharge planning / needs. DCP REVIEW SUMMARY ANTICIPATED D/C DATE: EXPECTED LOS : CASE STATUS: DCP Initiated INITIAL REVIEW: 01/03/2021 INITIAL REVIEWER: Nathalie Uribe FINAL DISCHARGE DISPOSITION: 20 : FINAL REVIEWER: Miladys Castellanos FINAL REVIEW DATE: 01/09/2021 DCP Focus Questions & Answers QUESTION: ANSWER : PATIENT: IVONNE RUTLEDGE ENCOUNTER: [id number] MEDICAL RECORD#: [id number] ADMISSION DATE: 12/23/2020 DISCHARGE DATE: 01/08/2021 ATTENDING MD: MACKENZIE MANN : AGE: 70 MARITAL STATUS: S DC PLAN ID: [id number] FACILITY: [facility] PRINTED ON: 01/09/21 9:58 CT All edits/amendments must be made on the electronic document DICTATION DATE: 01/09/21957 [employer] PILOT: SHAUNA 01/09/21957 RPT#: [id number] DC DATE:01/08/21 STATUS: DIS IN [facility] [address] [place] [address] END OF REPORT
== END 2021-01-08 23:19 | DRG 871 ==
LOC: D.ER 05:19 → D.M2 06:41
PROVIDERS: Emergency Medicine; Family Medicine; Internal Medicine Gastroenterology; ADMIT Family Medicine; ATTEND Family Medicine
DX: A41.9 Sepsis, unspecified organism (principal); I21.A1 Myocardial infarction type 2; J96.01 Acute respiratory failure with hypoxia; G93.41 Metabolic encephalopathy; J18.9 Pneumonia, unspecified organism; F10.239 Alcohol dependence with withdrawal, unspecified; N17.9 Acute kidney failure, unspecified; E87.1 Hypo-osmolality and hyponatremia; I85.10 Secondary esophageal varices without bleeding; F17.203 Nicotine dependence unspecified, with withdrawal; K70.31 Alcoholic cirrhosis of liver with ascites; Y90.0 Blood alcohol level of less than 20 mg/100 ml; E87.6 Hypokalemia; E83.42 Hypomagnesemia; I10 Essential (primary) hypertension; G89.29 Other chronic pain; K72.90 Hepatic failure, unspecified without coma; B19.20 Unspecified viral hepatitis C without hepatic coma; R19.7 Diarrhea, unspecified; Z66 Do not resuscitate; I08.1 Rheumatic disorders of both mitral and tricuspid valves